=== PATIENT | male | born 1950 | race Caucasian/White ===

== ENCOUNTER 2024-11-21 22:02 | Emergency (ER) | payer MEDICARE ==
[~2024-11-21] VITALS: Ht 170.2 cm; Wt 80.3 kg
[2024-11-21] MEDS ORDERED: ACETAMINOPHEN 325 MG TABLET ONE (22:18)
[2024-11-21] MEDS: ACETAMINOPHEN 325 MG TABLET PO ONE (22:19)
[2024-11-21] MEDS: PROPOFOL 200 MG/20 ML VIAL IV ONE (23:00)
[2024-11-21] MEDS: KETAMINE HCL (500MG/10ML) 50 MG/ML VIAL IV ONE (23:00)
[2024-11-21] MEDS ORDERED: PROPOFOL 20 ML IV ONE (23:26)
[2024-11-22] MEDS ORDERED: HYDR-3976 GT (01:22)
[2024-11-22] MEDS ORDERED: HYDR-3976 PO (01:42)
[2024-11-22 02:00] VITALS: BP 120/76; TEMP 97.8; O2SAT 99
== END 2024-11-22 02:02 | disposition home or self-care (01) ==
LOC: ER 22:10
DX: S93.04XA Dislocation of right ankle joint, initial encounter (principal); S82.841A Displaced bimalleolar fracture of right lower leg, initial encounter for closed fracture; I10 Essential (primary) hypertension; Z60.2 Problems related to living alone; X50.1XXA Overexertion from prolonged static or awkward postures, initial encounter; Y93.89 Activity, other specified; Y92.89 Other specified places as the place of occurrence of the external cause; Y99.8 Other external cause status
CPT/HCPCS: 27810; 73610; 73700; 99152; 99285; J2704; G0500